=== PATIENT | female | born 1960 | race Caucasian/White ===

== ENCOUNTER → 2016-08-06 | Outpatient (CLI) | payer BC ==
[~2016-08-06] MED LIST: ASPI81TA28 PO; BUPR-79 PO; CHOL400C7 PO; ESTR1CRE PV; FURO-85 PO; HYDR-5688 PO; HYDR5SYP11 PO; KETO10TA PO; LEVO1TAB35 PO; LORA-741 PO; LSX20 PO; LUTE6CAP PO; MCRK20 PO; MULT-506 PO; OMEGCAP2 PO; OXYC-57 PO; PRED20TA PO; ROSU5TAB PO; SERT-234 PO; TRAZ1TAB52 PO; TRAZ50TA35 PO; TYL325X PO; VNTHFA/IN INH
--- NOTE | 2016-08-06 07:44 | DIAGNOSTIC IMAGING REPORT ---
MRI LEFT SHOULDER NO CONTRAST CLINICAL HISTORY: Left shoulder pain. Possible rotator cuff tear. COMPARISON STUDY: No previous studies for comparison. FINDINGS: Imaging was performed in sagittal coronal and axial planes. The bicipital tendon appears normal. There are no areas of marrow edema to indicate occult fracture or bone bruise. There is supraspinatus tendinopathy. No full-thickness tear is visualized. There is no tendinous retraction. There is no evidence of pathologic muscular atrophy. There is a small amount of fluid within the subscapularis recess. There is a suspected tear of the anterior superior glenoid labrum with possible periosteal stripping IMPRESSION: 1. Supraspinatus tendinopathy. No full-thickness tear is visualized. There is no tendinous retraction 2. Suspected tear of the anterior superior glenoid labrum with possible periosteal stripping Electronically signed by: Dat Camejo M.D. 08/06/2016 7:42 AM
== END | disposition home or self-care (01) ==
LOC: C.MRI 06:19
PROVIDERS: ATTEND Orthopaedic Surgery
DX: M25.512 Pain in left shoulder (principal); M75.92 Shoulder lesion, unspecified, left shoulder

== ENCOUNTER → 2016-08-28 | Outpatient (CLI) | payer BC ==
[~2016-08-28] MED LIST changes: -CHOL400C7 PO; -ESTR1CRE PV; -HYDR5SYP11 PO; -LEVO1TAB35 PO; -LSX20 PO; -LUTE6CAP PO; -MULT-506 PO; -OMEGCAP2 PO; -PRED20TA PO; -ROSU5TAB PO; -TRAZ1TAB52 PO; -TYL325X PO; -VNTHFA/IN INH
[2016-08-28 09:48] LABS: BASO % 0.6 %; BASO ABS # 0.04 K/uL (0-0.2); COMPLETE YES; EOS % 4.3 %; HEMATOCRIT 40.3 % (37-47); IG% 0.2 %; LYMPH % 27.6 %; LYMPH ABS # 1.78 K/uL (1.2-3.4); MEAN CORPUSCULAR HEMOGLOBIN 30.2 pg (25-34); MEAN CORPUSCULAR HGB CONC 33.3 g/dl (32-36); MEAN PLATELET VOLUME 11.7 fL (7.4-10.4); MONO % 6.8 %; NEUT % 60.5 %; PLATELET COUNT 183 K/uL (130-400); RED BLOOD COUNT 4.43 M/uL (4.2-5.4); WHITE BLOOD COUNT 6.45 K/uL (4.8-10.8)
[2016-08-28 10:51] LABS: BLOOD UREA NITROGEN 11 mg/dl (7-18); BUN/CREATININE RATIO 12.3 (10-20); CALCIUM 9.4 mg/dl (8.5-10.1); CARBON DIOXIDE 26 mmol/L (21-32); CHLORIDE 103 mmol/L (98-107); GLUCOSE 106 mg/dl (70-99); SODIUM 141 mmol/L (136-145)
== END | disposition home or self-care (01) ==
LOC: C.LAB 06:58
PROVIDERS: ATTEND Orthopaedic Surgery
DX: M75.42 Impingement syndrome of left shoulder (principal)

== ENCOUNTER → 2016-09-05 | Day surgery (SDC) | payer BC ==
[2016-08-26 15:21] VITALS: Ht 165.1 cm; Wt 61.4 kg
[~2016-09-05] VITALS: Ht 165.1 cm; Wt 61.4 kg
[~2016-09-05] MED LIST changes: +ATROPINE SULFATE 0.1 MG/ML 5ML SYR IV PRN; +BUPIVACAINE/EPINEPHRINE 0.25% 1:200,000 30 ML VIAL ONE; +CEFAZOLIN 2000 MG/60 ML D5W IV SCH; +DEXAMETHASONE SOD INJ 4 MG/ML VIAL ONE; +EpHEDrine SULFATE 50MG/5ML SYR ONE; +EpHEDrine SULFATE INJ 50 MG/ML AMP IV PRN; +EpINEphrine INJ 1MG/ML AMP 1 MG/ML AMP ONE; +FENTANYL CITRATE INJ 50 MCG/1 ML 2 ML VIAL IV PRN; +FENTANYL CITRATE INJ 50 MCG/1 ML 2 ML VIAL ONE; +LACTATED RINGER'S 1000ML 1,000 ML IV SCH; +LIDOCAINE HCL 1% MPF 2 ML VIAL ONE; +LIDOCAINE HCL 2% 2 ML VIAL (20MG/ML) ONE; +MIDAZOLAM HCL 1 MG/ML 2ML VIAL ONE; +ONDANSETRON INJ 2 MG/ML 2 ML VIAL IV PRN; +ONDANSETRON INJ 2 MG/ML 2 ML VIAL ONE; +OXYCODONE/ACETAMINOPHEN 5-325 TAB PO PRN; +PROPOFOL IV EMULSION 10 MG/ML 20 ML VIAL IV ONE; +ROPIVACAINE 0.5% 5 MG/ML 30 ML VIAL ONE; +SCOPOLAMINE 1.5 MG TDSY TD ONE; +SODIUM CHLORIDE 0.9% 1000ML 1,000 ML IV SCH
--- NOTE | 2016-09-05 07:47 | History & Physical Bridge - [place] ---
H&P Re-Evaluation Bridge Note: I have examined the patient, reviewed the History & Physical and in the interval since the performance of the History & Physical I have noted the following changes of clinical significance: No changes noted
--- NOTE | 2016-09-05 10:04 | Discharge Instructions-SurgCtr ---
Discharge Instructions Visit Reason for Visit: Left Shoulder Impingement Syndrome, Biceps Tendini Discharge Discharge Diagnosis / Problem: SAME ABOVE Discharge Goals Goal(s): Decrease discomfort, Improve function Activity Recommendations Activity Limitations: as noted below Lifting Limitations: until after follow-up appointment Exercise/Sports Limitations: until after follow-up appointment Shower/Bathe: tomorrow Driving or Machine Use: WHEN OUT OF THE SLING AND OFF OF PAIN MEDICATION Anesthesia . Post Anesthesia Instructions: If you have had General Anesthesia or IV Sedation: * Do not drive today. * Resume driving when surgeon permits. * Do not make important decisions or sign legal documents today. * Call surgeon for: 1. Temperature elevations greater than 101 degrees F. 2. Uncontrollable pain. 3. Excessive bleeding. 4. Persistent nausea and vomiting. 5. Medication intolerance (nausea, vomiting or rash). * For nausea and vomiting use only clear liquids such as: tea, soda, bouillon until nausea subsides, then gradually increase diet as tolerated. * If you have any concerns or questions, call your surgeon's office. If physician is unavailable and it is an emergency, call 911 or go to the nearest emergency room. . Instructions / Follow-Up Instructions / Follow-Up MEDICATIONS: * Resume previous medications unless instructed otherwise by your surgeon. * Always take pain medication on a full stomach or with food to avoid upset stomach. * Do not drink alcohol or drive while taking narcotics. * Ibuprofen or Tylenol may be taken if narcotic not needed. SPECIAL CARE INSTRUCTIONS: __ None _X_ Keep extremity elevated and iced x 48 hours; apply ice 20-30 minutes 8-10 times/day. May remove at night. _X_ Sling (WEAR NEEDED FOR COMFORT) __24 hrs/day __ Remove at night __ Shoulder Immobilizer __ 24 hrs/day __ Remove at night _X_ Dressing __ Maintain until seen in office, may shower with plastic over site _X_ Remove dressings in 24-48 hours and then may shower _X_ Cover incisions with band-aids after showering _X_ Do not remove steri-strips Call physician if chills or temperature rises above 102 degrees or pain unrelieved by prescribed pain medications at . . Diet Recommendations Home Diet: no limitations Fluid Restriction: None Procedures Procedures Performed: Left Shoulder Arthroscopy, Subacromial Decompression, Open Bicep Tenodesis Pending Studies Studies pending at discharge: no Work Instructions Return To Work: after follow-up Lifting Limitations: NO LIFTING MORE THAN 5 POUNDS WITH LEFT ARM Medical Emergencies . Who to Call and When: Medical Emergencies: If at any time you feel your situation is an emergency, please call 911 immediately. . Non-Emergent Contact Non-Emergency issues call your: Primary Care Provider Call Non-Emergent contact if: you have a fever, temperature is above 101.5 . . "Provider Documentation" section prepared by Carl Manning.
--- NOTE | 2016-09-05 10:10 | OPERATIVE REPORT ---
DATE OF OPERATION: 09/05/2016 PREOPERATIVE DIAGNOSES: Severe external impingement, biceps tendinopathy of the left shoulder. POSTOPERATIVE DIAGNOSES: Same. PROCEDURE: Left shoulder diagnostic arthroscopy with limited debridement, acromioplasty, and open subpectoral biceps tenodesis. SURGEON: Dr. Vega Mg. HIGHWAY ENGINEERING TEACHER: Denzel Manning PA-C, whose assistance was necessary for positioning the arm and helping with instrumentation. ANESTHESIA: General with a left interscalene nerve block. COMPLICATIONS: None. CONDITION: Stable to PACU. INDICATIONS: Edilia is a pleasant 56-year-old female who presented to my office with complaints of chronic left shoulder pain. MRI and clinical examination were diagnostic for external impingement, biceps tendinopathy. After failing conservative treatment, she elected to undergo arthroscopy. On 09/05/2016, she arrived at [facility] for the above procedure. She was seen in the preoperative holding area, and the operative extremity was identified and signed. She was given a preoperative antibiotic and a left interscalene nerve block. She was taken back to the operating room, laid on the table in supine position, and put under general anesthesia. She was then put into the beachchair position. The left shoulder was prepped and draped in sterile fashion. Timeout was done, and the patient and operative extremity was properly identified. A scope was introduced in the posterior portal. Diagnostic arthroscopy showed no cartilage damage to the humeral head or the glenoid. There was a little bit of redness within the rotator interval, but she had no signs of adhesive capsulitis. There was a little fraying of the undersurface of the supraspinatus involving about 5% of the tendon. There was a little fraying of the upper border of the subscapularis as well. The biceps tendon was generally intact. There was a little bit of a degenerative superior labral tear. An anterior portal was made. A shaver was used to do a limited debridement of the intraarticular structures and the biceps tendon was arthroscopically tenotomized. The scope was then put into the subacromial space. A lateral portal was made. A shaver was used to do complete subacromial and subdeltoid bursectomy. An ablator was used to tease the coracoacromial ligament off the undersurface of the acromion and a 5-0 dorene was used to complete an acromioplasty of a Bigliani type 2 acromion. A shaver was used to remove any excess debris and the bursal side of the rotator cuff was examined extensively without evidence of tear. Arthroscopic instruments were removed from the shoulder. Attention was turned to an open biceps tenodesis. A small incision was made over the inferior border of the pec major. Dissection was taken down through the fascia and long head of the biceps tendon was delivered out of the wound. The tendon was then whipstitched at the anticipated level of tenodesis and the remainder of the tendon was discarded. A 6 mm hole was drilled in the bicipital groove and the biceps tendon was tenodesed with an Arthrex biceps button that was passed through the posterior cortex in a tension slide technique to deliver the tendon into the 6 mm hole. This gave good fixation. The wound was then irrigated and closed with 3-0 Vicryl and running 3-0 Monocryl. Steri-Strips were placed. Portal sites were closed with 3-0 nylon. She was then placed in a soft dressing and a regular arm sling. She was then extubated, transferred to a litter and taken to the postanesthesia care unit in stable condition. She tolerated the procedure well. I attest to the content of the Intraoperative Record and any orders documented therein. Any exceptio ns are noted below.
--- NOTE | 2016-09-05 10:44 | Anesthesia Progress Nt - [facility] ---
Anesthesia Post Op Note Date & Time Sep 05, 2016 at 10:44 Vital Signs Pain Intensity: 0 Vital Signs Past 12 Hours Date Time Temp Pulse Resp B/P Pulse Ox O2 Delivery O2 Flow Rate FiO2 09/05/16 10:39 37.4 09/05/16 10:39 115/68 09/05/16 10:37 83 21 100 09/05/16 10:37 82 21 09/05/16 10:33 134/71 09/05/16 10:32 89 16 99 09/05/16 10:32 88 16 09/05/16 10:28 114/68 09/05/16 10:27 77 19 98 09/05/16 10:27 77 19 09/05/16 10:23 116/74 09/05/16 10:22 86 23 100 09/05/16 10:22 86 23 09/05/16 10:18 121/66 09/05/16 10:17 79 22 09/05/16 10:17 85 22 100 09/05/16 10:14 110/67 09/05/16 10:12 88 20 100 09/05/16 10:12 86 20 09/05/16 10:08 114/74 09/05/16 10:07 88 17 09/05/16 10:07 89 17 100 09/05/16 10:04 120/75 09/05/16 10:02 92 31 09/05/16 10:02 92 31 100 09/05/16 09:59 36.9 97 16 135/66 99 Diffusion Mask 8 09/05/16 08:45 0 09/05/16 08:43 96/61 09/05/16 08:40 74 0 95 09/05/16 08:40 72 09/05/16 08:38 104/67 09/05/16 08:35 67 09/05/16 08:35 67 0 98 09/05/16 08:33 106/69 09/05/16 08:30 66 100 09/05/16 08:30 66 09/05/16 08:28 106/65 09/05/16 08:27 118/74 09/05/16 08:25 73 09/05/16 08:25 73 0 100 09/05/16 08:20 68 0 09/05/16 08:15 71 0 09/05/16 08:10 0 09/05/16 08:05 0 09/05/16 07:43 36.8 73 16 115/70 100 Room Air Notes Mental Status: alert / awake / arousable, participated in evaluation Pt Amnestic to Procedure: Yes Nausea / Vomiting: adequately controlled Pain: adequately controlled Airway Patency, RR, SpO2: stable & adequate BP & HR: stable & adequate Hydration State: stable & adequate Anesthetic Complications: no major complications apparent
[2016-09-05 10:50] VITALS: BP 116/73; PULSE 80; TEMP 36.7; O2SAT 97
--- NOTE | 2016-09-05 11:31 | [facility] Post Operative Brief Note ---
Immediate Operative Summary Operative Date Sep 05, 2016. Pre-Operative Diagnosis Left Shoulder Impingement Syndrome, Biceps Tendinitis Post-Operative Diagnosis Same Procedure(s) Performed Left Shoulder Arthroscopy, Subacromial Decompression, Open Bicep Tenodesis Surgeon Dr. Arleen Mg Machine Operator General Surgeon(s) Padmini Manning PA-C Estimated Blood Loss 5 cc Findings as above Specimens None Complication(s) None Disposition Recovery Room / PACU
== END | disposition home or self-care (01) ==
LOC: X.SURG 07:31
PROVIDERS: ATTEND Orthopaedic Surgery
DX: M75.42 Impingement syndrome of left shoulder (principal); M75.22 Bicipital tendinitis, left shoulder; E78.00 Pure hypercholesterolemia, unspecified; F41.9 Anxiety disorder, unspecified; Z98.890 Other specified postprocedural states; Z88.8 Allergy status to other drugs, medicaments and biological substances

== ENCOUNTER → 2016-11-26 | Outpatient (CLI) | payer BC ==
[~2016-11-26] MED LIST changes: -ATROPINE SULFATE 0.1 MG/ML 5ML SYR IV PRN; -BUPIVACAINE/EPINEPHRINE 0.25% 1:200,000 30 ML VIAL ONE; -CEFAZOLIN 2000 MG/60 ML D5W IV SCH; -DEXAMETHASONE SOD INJ 4 MG/ML VIAL ONE; -EpHEDrine SULFATE 50MG/5ML SYR ONE; -EpHEDrine SULFATE INJ 50 MG/ML AMP IV PRN; -EpINEphrine INJ 1MG/ML AMP 1 MG/ML AMP ONE; -FENTANYL CITRATE INJ 50 MCG/1 ML 2 ML VIAL IV PRN; -FENTANYL CITRATE INJ 50 MCG/1 ML 2 ML VIAL ONE; +HYDR5SYP11 PO; -KETO10TA PO; -LACTATED RINGER'S 1000ML 1,000 ML IV SCH; +LEVO1TAB35 PO; -LIDOCAINE HCL 1% MPF 2 ML VIAL ONE; -LIDOCAINE HCL 2% 2 ML VIAL (20MG/ML) ONE; -MIDAZOLAM HCL 1 MG/ML 2ML VIAL ONE; -ONDANSETRON INJ 2 MG/ML 2 ML VIAL IV PRN; -ONDANSETRON INJ 2 MG/ML 2 ML VIAL ONE; -OXYC-57 PO; -OXYCODONE/ACETAMINOPHEN 5-325 TAB PO PRN; +PRED20TA PO; -PROPOFOL IV EMULSION 10 MG/ML 20 ML VIAL IV ONE; -ROPIVACAINE 0.5% 5 MG/ML 30 ML VIAL ONE; -SCOPOLAMINE 1.5 MG TDSY TD ONE; -SODIUM CHLORIDE 0.9% 1000ML 1,000 ML IV SCH; +VNTHFA/IN INH
[2016-11-26 09:43] LABS: BASO % 1.6 %; BASO ABS # 0.08 K/uL (0-0.2); COMPLETE YES; EOS % 5.8 %; HEMATOCRIT 39.1 % (37-47); IG% 0.2 %; LYMPH % 49.3 %; LYMPH ABS # 2.48 K/uL (1.2-3.4); MEAN CELL VOLUME 89.1 fL (80-100); MEAN CORPUSCULAR HEMOGLOBIN 29.6 pg (25-34); MEAN CORPUSCULAR HGB CONC 33.2 g/dl (32-36); MEAN PLATELET VOLUME 11.1 fL (7.4-10.4); MONO % 9.5 %; NEUT % 33.6 %; PLATELET COUNT 209 K/uL (130-400); RED BLOOD COUNT 4.39 M/uL (4.2-5.4); WHITE BLOOD COUNT 5.03 K/uL (4.8-10.8)
[2016-11-26 09:58] LABS: BLOOD UREA NITROGEN 18 mg/dl (7-18); BUN/CREATININE RATIO 17.8 (10-20); CALCIUM 9.3 mg/dl (8.5-10.1); CARBON DIOXIDE 31 mmol/L (21-32); CHLORIDE 101 mmol/L (98-107); GLUCOSE 97 mg/dl (70-99); POTASSIUM 4.4 mmol/L (3.5-5.1); SODIUM 136 mmol/L (136-145)
== END | disposition home or self-care (01) ==
LOC: C.LAB1850 07:03
PROVIDERS: ATTEND Orthopaedic Surgery
DX: M75.42 Impingement syndrome of left shoulder (principal); Z01.812 Encounter for preprocedural laboratory examination

== ENCOUNTER → 2016-11-28 | Day surgery (SDC) | payer BC ==
[2016-11-18 09:47] VITALS: Ht 165.1 cm; Wt 59.1 kg
[~2016-11-28] VITALS: Ht 165.1 cm; Wt 59.1 kg
[~2016-11-28] MED LIST changes: +ATROPINE SULFATE 0.1 MG/ML 5ML SYR IV PRN; +BUPIVACAINE 0.5 % 5 MG/1 ML PF 10ML VIAL ONE; +DEXAMETHASONE SOD INJ 4 MG/ML VIAL ONE; +FENTANYL CITRATE INJ 50 MCG/1 ML 2 ML VIAL IV PRN; +FENTANYL CITRATE INJ 50 MCG/1 ML 2 ML VIAL ONE; +HYDROCODONE/ACETAMOPHEN 5/325MG TAB PO PRN; +KETOROLAC TROMETHAMINE 30 MG/ML VIAL IV. PRN; +LACTATED RINGER'S 1000ML 1,000 ML IV SCH; +LIDOCAINE HCL 2% 2 ML VIAL (20MG/ML) ONE; +METHYLPREDNISOLONE ACETATE 80 MG/ML VIAL ONE; +MIDAZOLAM HCL 1 MG/ML 2ML VIAL ONE; +ONDANSETRON INJ 2 MG/ML 2 ML VIAL IV PRN; +ONDANSETRON INJ 2 MG/ML 2 ML VIAL ONE; +PROPOFOL IV EMULSION 10 MG/ML 20 ML VIAL IV ONE; +ROPIVACAINE 0.5% 5 MG/ML 30 ML VIAL ONE; +SODIUM CHLORIDE 0.9% 1000ML 1,000 ML IV SCH
[2016-11-28 12:16] VITALS: TEMP 36.3
--- NOTE | 2016-11-28 12:17 | Discharge Instructions-SurgCtr ---
Discharge Instructions Date of Service Nov 28, 2016. Visit Reason for Visit: Left Shoulder Impingement Syndrome, Biceps Tendini Discharge Discharge Diagnosis / Problem: SAME ABOVE Discharge Goals Goal(s): Decrease discomfort, Improve function Activity Recommendations Activity Limitations: as noted below Lifting Limitations: gradually increase as tolerated Exercise/Sports Limitations: gradually increase as tolerated Driving or Machine Use: resume 1 day after discharge Anesthesia . Post Anesthesia Instructions: If you have had General Anesthesia or IV Sedation: * Do not drive today. * Resume driving when surgeon permits. * Do not make important decisions or sign legal documents today. * Call surgeon for: 1. Temperature elevations greater than 101 degrees F. 2. Uncontrollable pain. 3. Excessive bleeding. 4. Persistent nausea and vomiting. 5. Medication intolerance (nausea, vomiting or rash). * For nausea and vomiting use only clear liquids such as: tea, soda, bouillon until nausea subsides, then gradually increase diet as tolerated. * If you have any concerns or questions, call your surgeon's office. If physician is unavailable and it is an emergency, call 911 or go to the nearest emergency room. . Instructions / Follow-Up Instructions / Follow-Up MEDICATIONS: * Resume previous medications unless instructed otherwise by your surgeon. * Always take pain medication on a full stomach or with food to avoid upset stomach. * Do not drink alcohol or drive while taking narcotics. * Ibuprofen or Tylenol may be taken if narcotic not needed. SPECIAL CARE INSTRUCTIONS: __ None _X_ Keep extremity elevated and iced x 48 hours; apply ice 20-30 minutes 8-10 times/day. May remove at night. _X_ Sling (MAY D/C TOMORROW) __24 hrs/day __ Remove at night __ Shoulder Immobilizer __ 24 hrs/day __ Remove at night __ Dressing __ Maintain until seen in office, may shower with plastic over site __ Remove dressings in 24-48 hours and then may shower __ Cover incisions with band-aids after showering __ Do not remove steri-strips Call physician if chills or temperature rises above 102 degrees or pain unrelieved by prescribed pain medications at . . Diet Recommendations Home Diet: no limitations Procedures Procedures Performed: Left Shoulder Manipulation Under Anesthesia Pending Studies Studies pending at discharge: no Work Instructions Return To Work: after follow-up (OR SOONER IF PAIN IS TOLERATED ) Lifting Limitations: INCREASE TOLERATED Medical Emergencies . Who to Call and When: Medical Emergencies: If at any time you feel your situation is an emergency, please call 911 immediately. . Non-Emergent Contact Non-Emergency issues call your: Primary Care Provider Call Non-Emergent contact if: you have a fever, temperature is above 101.5 . . "Provider Documentation" section prepared by Carl Manning. .
[2016-11-28 12:45] VITALS: BP 109/70; PULSE 71; O2SAT 100
--- NOTE | 2016-11-28 12:49 | OPERATIVE REPORT ---
DATE OF OPERATION: 11/28/2016 PREOPERATIVE DIAGNOSIS: Postoperative adhesive capsulitis of the left shoulder. POSTOPERATIVE DIAGNOSIS: Same. PROCEDURE: Manipulation under anesthesia of the left shoulder. SURGEON: Dr. Vega Mg. PUBLIC POLICY COORDINATOR: None. ANESTHESIA: Sedation with a left interscalene nerve block. COMPLICATIONS: None. CONDITION: Stable to PACU. INDICATIONS: Edilia is a pleasant 56-year-old female who underwent a left shoulder arthroscopy for decompression and open biceps tenodesis about 3 months ago. She initially did well postoperatively but unfortunately her shoulder tightened up. She elected to undergo manipulation under anesthesia. On 11/28/2016 she arrived at [facility] for the above procedure. She was seen in the preoperative holding area and the operative extremity was identified and signed. She was given a left interscalene nerve block and taken back to the operating room, laid on the table in supine position and given basic sedation. A time-out was done and the patient and operative extremity was properly identified. On preoperative physical examination, she had about 45 degrees of abduction and 30 degrees of external rotation. A gentle manipulation was done under anesthesia and I was able to get full range of motion of her shoulder. I then injected the shoulder with 80 mg of Depo-Medrol and 5 mL of Marcaine. She was then taken to the postanesthesia care unit in stable condition. She tolerated the procedure well. I attest to the content of the Intraoperative Record and any orders documented therein. Any exceptio ns are noted below.
--- NOTE | 2016-11-28 12:53 | Anesthesia Progress Nt - [facility] ---
Anesthesia Post Op Note Date & Time Nov 28, 2016 at 12:53 Vital Signs Pain Intensity: 0 Vital Signs Past 12 Hours Date Time Temp Pulse Resp B/P Pulse Ox O2 Delivery O2 Flow Rate FiO2 11/28/16 12:45 71 14 109/70 100 Room Air 11/28/16 12:16 36.3 68 16 99/59 98 Room Air 11/28/16 11:57 65 9 100 11/28/16 11:57 66 11/28/16 11:55 14 11/28/16 11:55 107/66 11/28/16 11:52 66 7 100 11/28/16 11:52 66 11/28/16 11:50 106/64 11/28/16 11:47 67 9 100 11/28/16 11:47 66 11/28/16 11:45 102/61 11/28/16 11:42 64 4 99 11/28/16 11:42 65 11/28/16 11:40 98/62 11/28/16 11:37 64 2 99 11/28/16 11:37 65 11/28/16 11:35 16 11/28/16 11:35 91/61 11/28/16 11:32 63 11/28/16 11:32 62 3 100 11/28/16 11:30 104/67 11/28/16 11:27 69 11/28/16 11:27 69 30 100 11/28/16 11:25 16 11/28/16 11:25 109/69 11/28/16 11:22 69 0 100 11/28/16 11:22 67 11/28/16 11:17 69 0 11/28/16 11:12 69 0 11/28/16 11:07 70 0 11/28/16 11:02 71 0 11/28/16 10:57 71 0 93 11/28/16 10:57 110 11/28/16 09:54 36.8 77 16 109/70 99 Room Air Notes Mental Status: alert / awake / arousable, participated in evaluation Pt Amnestic to Procedure: Yes Nausea / Vomiting: adequately controlled Pain: adequately controlled Airway Patency, RR, SpO2: stable & adequate BP & HR: stable & adequate Hydration State: stable & adequate Anesthetic Complications: no major complications apparent
== END | disposition home or self-care (01) ==
LOC: X.SURG 09:25
PROVIDERS: ATTEND Orthopaedic Surgery
DX: M75.02 Adhesive capsulitis of left shoulder (principal); M19.90 Unspecified osteoarthritis, unspecified site; F41.9 Anxiety disorder, unspecified; F32.9 Major depressive disorder, single episode, unspecified; Z90.89 Acquired absence of other organs; Z98.890 Other specified postprocedural states; Z68.22 Body mass index [BMI] 22.0-22.9, adult; Z82.49 Family history of ischemic heart disease and other diseases of the circulatory system

== ENCOUNTER → 2017-05-13 | Outpatient (CLI) | payer BC ==
[~2017-05-13] MED LIST changes: -ATROPINE SULFATE 0.1 MG/ML 5ML SYR IV PRN; -BUPIVACAINE 0.5 % 5 MG/1 ML PF 10ML VIAL ONE; -DEXAMETHASONE SOD INJ 4 MG/ML VIAL ONE; -FENTANYL CITRATE INJ 50 MCG/1 ML 2 ML VIAL IV PRN; -FENTANYL CITRATE INJ 50 MCG/1 ML 2 ML VIAL ONE; -HYDR5SYP11 PO; -HYDROCODONE/ACETAMOPHEN 5/325MG TAB PO PRN; -KETOROLAC TROMETHAMINE 30 MG/ML VIAL IV. PRN; -LACTATED RINGER'S 1000ML 1,000 ML IV SCH; -LEVO1TAB35 PO; -LIDOCAINE HCL 2% 2 ML VIAL (20MG/ML) ONE; -METHYLPREDNISOLONE ACETATE 80 MG/ML VIAL ONE; -MIDAZOLAM HCL 1 MG/ML 2ML VIAL ONE; -ONDANSETRON INJ 2 MG/ML 2 ML VIAL IV PRN; -ONDANSETRON INJ 2 MG/ML 2 ML VIAL ONE; -PRED20TA PO; -PROPOFOL IV EMULSION 10 MG/ML 20 ML VIAL IV ONE; -ROPIVACAINE 0.5% 5 MG/ML 30 ML VIAL ONE; -SODIUM CHLORIDE 0.9% 1000ML 1,000 ML IV SCH; -VNTHFA/IN INH
--- NOTE | 2017-05-13 10:00 | DIAGNOSTIC IMAGING REPORT ---
CHEST 2 VIEWS ROUTINE CLINICAL HISTORY: 57 years-old Female presenting with COUGH. TECHNIQUE: PA and lateral views of the chest were obtained. COMPARISON: 12/04/2013. FINDINGS: Cardiomediastinal silhouette normal. Mild hyperinflation. No focal infiltrate. No pleural effusion or pneumothorax. Mild scoliotic curvature of the thoracic spine. Upper abdomen normal. IMPRESSION: 1. Hyperinflation could suggest emphysema. No focal infiltrate to suggest pneumonia. Electronically signed by: Valentín Ross M.D. 05/13/2017 9:58 AM Dictated Date/Time: 05/13/2017 9:58 AM
== END | disposition home or self-care (01) ==
LOC: C.RAD1850 09:49
PROVIDERS: ATTEND Family Medicine
DX: R05 Cough (principal); R91.8 Other nonspecific abnormal finding of lung field

== ENCOUNTER → 2017-07-11 | Outpatient (CLI) | payer BC ==
[~2017-07-11] MED LIST changes: -HYDR-5688 PO; +LEVO1TAB35 PO; +PRED20TA PO; +VNTHFA/IN INH
[2017-07-11 12:28] LABS: ALB/GLOB RATIO 1.2 (0.9-2); ALKALINE PHOSPHATASE 76 U/L (45-117); ALT/SGPT 24 U/L (12-78); AST/SGOT 20 U/L (15-37); BLOOD UREA NITROGEN 9 mg/dl (7-18); BUN/CREATININE RATIO 10.2 (10-20); CALCIUM 9.2 mg/dl (8.5-10.1); CARBON DIOXIDE 32 mmol/L (21-32); CHLORIDE 102 mmol/L (98-107); CHOLESTEROL 266 mg/dl (0-200); CREATININE 0.86 mg/dl (0.60-1.20); GLUCOSE 87 mg/dl (70-99); HDL CHOLESTEROL 67 mg/dl; LDL CHOLESTEROL CALCULATED 178 mg/dl; POTASSIUM 3.7 mmol/L (3.5-5.1); SODIUM 136 mmol/L (136-145); TRIGLYCERIDES 107 mg/dl (0-150); VERY LOW DENSITY LIPOPROT CALC 21 mg/dl
[2017-07-11 12:35] LABS: THYROID STIMULATING HORMONE 0.925 uIu/ml (0.300-4.500)
== END | disposition home or self-care (01) ==
LOC: C.LAB1850 09:52
PROVIDERS: ATTEND Family Medicine
DX: R53.81 Other malaise (principal); R53.83 Other fatigue; E78.5 Hyperlipidemia, unspecified; E55.9 Vitamin D deficiency, unspecified

== ENCOUNTER → 2017-12-03 | Outpatient (CLI) | payer BC ==
[2017-12-03 10:22] LABS: ALBUMIN 4.1 gm/dl (3.4-5.0); ALT/SGPT 22 U/L (12-78); AST/SGOT 23 U/L (15-37); BLOOD UREA NITROGEN 16 mg/dl (7-18); CALCIUM 8.8 mg/dl (8.5-10.1); CARBON DIOXIDE 32 mmol/L (21-32); CHOLESTEROL 207 mg/dl (0-200); GLUCOSE 100 mg/dl (70-99); POTASSIUM 3.5 mmol/L (3.5-5.1); SODIUM 140 mmol/L (136-145)
[2017-12-03 10:27] LABS: ALKALINE PHOSPHATASE 83 U/L (45-117); LDL CHOLESTEROL CALCULATED 130 mg/dl; TOTAL PROTEIN 7.3 gm/dl (6.4-8.2)
== END | disposition home or self-care (01) ==
LOC: C.LAB1850 09:13
PROVIDERS: ATTEND Family Medicine
DX: E78.5 Hyperlipidemia, unspecified (principal)

== ENCOUNTER → 2017-12-04 | Outpatient (CLI) | payer BC ==
--- NOTE | 2017-12-04 08:05 | DIAGNOSTIC IMAGING REPORT ---
CHEST CT WITH CONTRAST CT DOSE: 213.04 mGy.cm HISTORY: Acute cough with shortness of breath and pneumonia TECHNIQUE: Multiaxial CT images of the chest were performed following the intravenous administration of contrast. A dose lowering technique was utilized adhering to the principles of ALARA. COMPARISON: Chest radiograph 06/04/2017 FINDINGS: Thyroid is homogeneous. Trace pericardial effusion. The heart is normal in size. Thoracic aorta is normal in course and caliber without aneurysm or dissection. Mild mixed plaquing of the upper abdominal aorta. The opacified pulmonary arterial tree is unremarkable. There is reflux of contrast into the IVC. There is no bulky adenopathy of the chest identified. There is no pneumothorax or pleural effusion. Linear subsegmental consolidative opacities of the lung bases, right greater than left suggest areas of atelectasis/scarring. 2 mm solid nodule of the left lower lobe as seen on image 232 series 4. No suspicious pulmonary nodules or masses are identified. There are ill-defined centrilobular and patchy groundglass opacities of the basal right lower lobe. No lobar airspace consolidations. Central airways are patent. No acute process of the imaged upper abdomen. Soft tissues and breast parenchyma are unremarkable. The bones appear intact. Multilevel endplate spurring throughout the spine. IMPRESSION: 1. Ill-defined centrilobular and patchy groundglass opacities of the basal right lower lobe suggest infectious or inflammatory pneumonitis. 2. No pathologic adenopathy. 3. Trace pericardial effusion. Electronically signed by: Franklin Valles M.D. 12/04/2017 8:04 AM Dictated Date/Time: 12/04/2017 7:56 AM
== END | disposition home or self-care (01) ==
LOC: C.CTS 07:23
PROVIDERS: ATTEND Family Medicine
DX: J18.1 Lobar pneumonia, unspecified organism (principal); R91.8 Other nonspecific abnormal finding of lung field